=== PATIENT | female | born 1945 ===

== ENCOUNTER 2018-09-27 18:02 | Observation (INO) | payer BC, MEDICARE ==
[2018-09-27] MEDS ORDERED: Sodium Chloride 0.9% 10 ML Syringe FLUSH PRN ×2 (18:20→22:34)
[2018-09-27] MEDS ORDERED: Sodium Chloride 0.9% 2.5 ML Syringe FLUSH PRN ×2 (18:20→22:34)
--- NOTE | 2018-09-27 18:26 | EDM.PDOC ---
ED HPI GENERAL MEDICAL PROBLEM - General Chief Complaint: Cardiovascular Problem Stated Complaint: SHORTNESS OF BREATH, SWELLING IN LEGS Time Seen by Provider: 09/27/18 18:18 - History of Present Illness INITIAL COMMENTS - FREE TEXT/NARRATIVE: HISTORY AND PHYSICAL: History of present illness: Patient 73-year-old white female no significant past medical history presents with a concern of shortness of breath and peripheral edema she states worse over last 3-4 weeks she was seen in the clinic and not given diagnosis and was told that her lungs were clear. She denies chest pain nausea vomiting denies history of congestive heart failure renal failure heart disease and states her blood pressures borderline for which she has not been medicated Review of systems: As per history of present illness and below otherwise all systems reviewed and negative. Past medical history: As per history of present illness and as reviewed below otherwise noncontributory. Surgical history: As per history of present illness and as reviewed below otherwise noncontributory. Social history: No reported history of drug or alcohol abuse. Family history: As per history of present illness and as reviewed below otherwise noncontributory. Physical exam: HEENT: Atraumatic, normocephalic, pupils reactive, negative for conjunctival pallor or scleral icterus, mucous membranes moist, throat clear, neck supple, nontender, trachea midline. Lungs: Clear to auscultation, breath sounds equal bilaterally, chest nontender. Heart: S1S2, irregularly irregular, negative for clicks, rubs, or JVD. Abdomen: Soft, nondistended, nontender. Negative for masses or hepatosplenomegaly. Negative for costovertebral tenderness. Pelvis: Stable nontender. Genitourinary: Deferred. Rectal: Deferred. Extremities: Atraumatic, negative for cords or calf pain. Neurovascular unremarkable. Neuro: Awake, alert, oriented. Cranial nerves II through XII unremarkable. Cerebellum unremarkable. Motor and sensory unremarkable throughout. Exam nonfocal. Diagnostics: CBC CMP troponin and BNP PT/INR chest x-ray EKG Therapeutics: IV O2 monitor Artisan 20 mg IV Lovenox 83 mg subcutaneous Impression: #1 dyspnea #2 peripheral edema #3 new-onset atrial fibrillation with rapid ventricular response Definitive disposition and diagnosis as appropriate pending reevaluation and review of above. Under Ribs Pain Score (Numeric/FACES): 2 - Related Data Allergies Allergy/AdvReac Type Severity Reaction Status Date / Time shrimp Allergy Vomiting Verified 09/27/18 19:37 Home Meds: Home Meds . [No Known Home Meds] 09/27/18 [History] ED ROS GENERAL - Review of Systems Review Of Systems: ROS reveals no pertinent complaints other than HPI. ED EXAM, GENERAL - Physical Exam Exam: See Below (See dictation) Course - Vital Signs Last Recorded V/S: Last Vital Signs Temp 36.1 C 09/27/18 18:20 Pulse 111 H 09/27/18 18:20 Resp 20 09/27/18 18:20 BP 96/68 09/27/18 18:20 Pulse Ox 90 L 09/27/18 18:20 - Orders/Labs/Meds Orders: Active Orders 24 hr Category Date Time Status EKG Documentation Completion [RC] STAT Care 09/27/18 18:20 Active Pulse Oximetry [RC] ASDIRECTED Care 09/27/18 18:20 Active Sodium Chloride 0.9% [Normal Saline] 1,000 ml Med 09/27/18 18:30 Active IV ASDIRECTED Sodium Chloride 0.9% [Saline Flush] Med 09/27/18 18:20 Active 10 ml FLUSH ASDIRECTED PRN Sodium Chloride 0.9% [Saline Flush] Med 09/27/18 18:20 Active 2.5 ml FLUSH ASDIRECTED PRN Saline Lock Insert [OM.PC] Stat Oth 09/27/18 18:20 Ordered Medication Orders Sodium Chloride (Normal Saline) 1,000 mls @ 125 mls/hr IV ASDIRECTED ARIA Last Admin: 09/27/18 18:35 Dose: 125 mls/hr Sodium Chloride (Saline Flush) 10 ml FLUSH ASDIRECTED PRN PRN Reason: Keep Vein Open Sodium Chloride (Saline Flush) 2.5 ml FLUSH ASDIRECTED PRN PRN Reason: Keep Vein Open Labs: Laboratory Tests 09/27/18 09/27/18 09/27/18 Range/Units 18:30 18:30 18:30 WBC 11.52 H (4.0-11.0) K/uL RBC 5.34 (4.30-5.90) M/uL Hgb 14.5 (12.0-16.0) g/dL Hct 46.4 H (36.0-46.0) % MCV 86.9 (80.0-98.0) fL MCH 27.2 (27.0-32.0) pg MCHC 31.3 (31.0-37.0) g/dL RDW Std Deviation 48.6 (28.0-62.0) fl RDW Coeff of Peterson 15 (11.0-15.0) % Plt Count 331 (150-400) K/uL MPV 11.20 (7.40-12.00) fL Neut % (Auto) 53.7 (48.0-80.0) % Lymph % (Auto) 37.2 (16.0-40.0) % [place] % (Auto) 7.2 (0.0-15.0) % Eos % (Auto) 1.1 (0.0-7.0) % Baso % (Auto) 0.8 (0.0-1.5) % Neut # (Auto) 6.2 H (1.4-5.7) K/uL Lymph # (Auto) 4.3 H (0.6-2.4) K/uL [place] # (Auto) 0.8 (0.0-0.8) K/uL Eos # (Auto) 0.1 (0.0-0.7) K/uL Baso # (Auto) 0.1 (0.0-0.1) K/uL Nucleated RBC % 0.0 /100WBC Nucleated RBCs # 0 K/uL INR 1.17 Sodium 143 (136-145) mmol/L Potassium 3.9 (3.5-5.1) mmol/L Chloride 106 (98-107) mmol/L Carbon Dioxide 26.3 (21.0-32.0) mmol/L BUN 14 (7.0-18.0) mg/dL Creatinine 0.9 (0.6-1.0) mg/dL Est Cr Clr Drug Dosing 55.75 mL/min Estimated GFR (MDRD) > 60.0 ml/min Glucose 107 H (74-106) mg/dL Calcium 9.0 (8.5-10.1) mg/dL Total Bilirubin 1.7 H (0.2-1.0) mg/dL AST 49 H (15-37) IU/L ALT 44 (14-63) IU/L Alkaline Phosphatase 144 H (46-116) U/L Troponin I < 0.050 (0.000-0.056) ng/mL B-Natriuretic Peptide (<100) PG/ML Total Protein 7.2 (6.4-8.2) g/dL Albumin 3.4 (3.4-5.0) g/dL Globulin 3.8 (2.6-4.0) g/dL Albumin/Globulin Ratio 0.9 (0.9-1.6) 09/27/18 Range/Units 18:30 WBC (4.0-11.0) K/uL RBC (4.30-5.90) M/uL Hgb (12.0-16.0) g/dL Hct (36.0-46.0) % MCV (80.0-98.0) fL MCH (27.0-32.0) pg MCHC (31.0-37.0) g/dL RDW Std Deviation (28.0-62.0) fl RDW Coeff of Peterson (11.0-15.0) % Plt Count (150-400) K/uL MPV (7.40-12.00) fL Neut % (Auto) (48.0-80.0) % Lymph % (Auto) (16.0-40.0) % [place] % (Auto) (0.0-15.0) % Eos % (Auto) (0.0-7.0) % Baso % (Auto) (0.0-1.5) % Neut # (Auto) (1.4-5.7) K/uL Lymph # (Auto) (0.6-2.4) K/uL [place] # (Auto) (0.0-0.8) K/uL Eos # (Auto) (0.0-0.7) K/uL Baso # (Auto) (0.0-0.1) K/uL Nucleated RBC % /100WBC Nucleated RBCs # K/uL INR Sodium (136-145) mmol/L Potassium (3.5-5.1) mmol/L Chloride (98-107) mmol/L Carbon Dioxide (21.0-32.0) mmol/L BUN (7.0-18.0) mg/dL Creatinine (0.6-1.0) mg/dL Est Cr Clr Drug Dosing mL/min Estimated GFR (MDRD) ml/min Glucose (74-106) mg/dL Calcium (8.5-10.1) mg/dL Total Bilirubin (0.2-1.0) mg/dL AST (15-37) IU/L ALT (14-63) IU/L Alkaline Phosphatase (46-116) U/L Troponin I (0.000-0.056) ng/mL B-Natriuretic Peptide 701 H (<100) PG/ML Total Protein (6.4-8.2) g/dL Albumin (3.4-5.0) g/dL Globulin (2.6-4.0) g/dL Albumin/Globulin Ratio (0.9-1.6) Meds: Medications Generic Name Dose Route Start Last Admin Trade Name Freq PRN Reason Stop Dose Admin Sodium Chloride 1,000 mls @ 125 mls/hr 09/27/18 18:30 09/27/18 18:35 Normal Saline IV 125 mls/hr ASDIRECTED ARIA Administration Sodium Chloride 10 ml 09/27/18 18:20 Saline Flush FLUSH ASDIRECTED PRN Keep Vein Open Sodium Chloride 2.5 ml 09/27/18 18:20 Saline Flush FLUSH ASDIRECTED PRN Keep Vein Open Discontinued Medications Generic Name Dose Route Start Last Admin Trade Name Freq PRN Reason Stop Dose Admin Diltiazem HCl 20 mg 09/27/18 18:28 09/27/18 19:34 Diltiazem IVPUSH 09/27/18 18:29 20 mg ONETIME ONE Administration Enoxaparin Sodium 83 mg 09/27/18 18:29 09/27/18 18:35 Lovenox SUBCUT 09/27/18 18:30 83 mg ONETIME ONE Administration Departure - Departure Time of Disposition: 19:41 Disposition: Refer to Observation Condition: Good Clinical Impression: Atrial fibrillation - Discharge Information Referrals: Blair Shetty MD [Primary Care Provider] - Forms: ED Department Discharge - My Orders Last 24 Hours: My Active Orders 09/27/18 18:20 EKG Documentation Completion [RC] STAT Pulse Oximetry [RC] ASDIRECTED Sodium Chloride 0.9% [Saline Flush] 10 ml FLUSH ASDIRECTED PRN Sodium Chloride 0.9% [Saline Flush] 2.5 ml FLUSH ASDIRECTED PRN Saline Lock Insert [OM.PC] Stat 09/27/18 18:30 Sodium Chloride 0.9% [Normal Saline] 1,000 ml IV ASDIRECTED - Assessment/Plan Last 24 Hours: My Active Orders 09/27/18 18:20 EKG Documentation Completion [RC] STAT Pulse Oximetry [RC] ASDIRECTED Sodium Chloride 0.9% [Saline Flush] 10 ml FLUSH ASDIRECTED PRN Sodium Chloride 0.9% [Saline Flush] 2.5 ml FLUSH ASDIRECTED PRN Saline Lock Insert [OM.PC] Stat 09/27/18 18:30 Sodium Chloride 0.9% [Normal Saline] 1,000 ml IV ASDIRECTED
[2018-09-27] MEDS ORDERED: Diltiazem 25 MG/5 ML SDV IVPUSH ONE (18:28)
[2018-09-27] MEDS ORDERED: Enoxaparin 100 MG/1 ML Syringe SUBCUT ONE (18:29)
[2018-09-27] MEDS: Sodium Chloride 0.9% 1,000 ML IV SCH ×2 (18:35→22:47)
[2018-09-27 19:03] LABS: CHLORIDE,CL 106 mmol/L (98-107); SODIUM,NA 143 mmol/L (136-145)
--- NOTE | 2018-09-27 19:33 | CR ---
INDICATION: Shortness of breath, chest pain TECHNIQUE: Chest radiograph 1 view COMPARISON: None FINDINGS: Moderate to severe degradation of image quality noted due to body habitus. Mediastinum: The mediastinum is normal in appearance. Mild enlargement of the cardiac silhouette is present but may be accentuated by the portable technique. Lung: Both lungs are unremarkable in appearance. No sign of pleural effusion seen. No pneumothorax is identified. IMPRESSION: 1. Mild enlargement of the cardiac silhouette is present but may be accentuated by the portable technique. Dictated by Gideon Boudreaux MD @ 09/27/2018 7:31:46 PM Dictated by: Gideon Boudreaux MD @ 09/27/2018 19:31:51 (Electronically Signed)
[2018-09-27] MEDS ORDERED: oxyCODONE 5 MG Tab PO PRN (22:23)
[2018-09-27] MEDS ORDERED: Acetaminophen 325 MG Tab PO PRN (22:24)
[2018-09-28] MEDS: Diltiazem 25 MG/5 ML SDV IVPUSH PRN ×2 (00:10→08:03)
[2018-09-28] MEDS ORDERED: Enoxaparin 100 MG/1 ML Syringe SUBCUT SCH (09:00)
[2018-09-28] MEDS ORDERED: Furosemide 40 MG/4 ML VIAL IVPUSH ONE ×2 (09:41→17:38)
--- NOTE | 2018-09-28 09:50 | PCM.HP.2 ---
<Tylor Montez - Last Filed: 09/28/18 11:00> H&P History of Present Illness - General Date of Service: 09/28/18 Admit Problem/Dx: Admission Diagnosis/Problem Admission Diagnosis/Problem Atrial fibrillation - History of Present Illness Initial Comments - Free Text/Narative: 73 y/o female with no significant past medical history who presented to the ER complaining of worsening shortness of breath and leg swelling. She states that the leg swelling has been getting worse over the past 2 weeks and that her shortness of breath has been worsening in the past 1 week. She denies tobacco use. No history of lung disease. She is not taking any prescription medications. Occasional alcohol use. She does endorse family history of heart disease. She does share with me that she has been more stressed than usual the past 1 month since she is in the process of moving to [place]. Denies any chest pains. Some palpitations. No nausea, vomiting. No abdominal pain, dysuria, diarrhea, blood in stool. In the ER, chest xray showed some pulmonary congestion and cardiomegaly. BNP 700. EKG showed atrial fibrillation. Serial trops x3 were negative. Under Ribs Pain Score (Numeric/FACES): 2 - Related Data Allergies/Adverse Reactions: Allergies Allergy/AdvReac Type Severity Reaction Status Date / Time shrimp Allergy Vomiting Verified 09/27/18 21:38 Home Medications: Home Meds . [No Known Home Meds] 09/27/18 [History] Past Medical History - Past Health History Medical/Surgical History: Denies Medical/Surgical History Social & Family History - Tobacco Use Smoking Status *Q: Never Smoker - Caffeine Use Caffeine Use: Reports: Coffee, Soda, Tea - Recreational Drug Use Recreational Drug Use: No H&P Review of Systems - Review of Systems: Review Of Systems: ROS reveals no pertinent complaints other than HPI. Exam - Exam Exam: See Below - Vital Signs Vital Signs: Last Vital Signs Temp 36.4 C 09/28/18 08:09 Pulse 128 H 09/28/18 08:09 Resp 17 09/28/18 08:09 BP 155/89 H 09/28/18 08:09 Pulse Ox 94 L 09/28/18 08:09 Weight: 84.232 kg - Exam General: Alert, Oriented, Cooperative HEENT: Conjunctiva Clear, Mucosa Moist & [place] Lungs: Normal Respiratory Effort, Crackles. No: Wheezing Cardiovascular: Irregular Rhythm, Tachycardia GI/Abdominal Exam: Normal Bowel Sounds, Soft, Non-Tender Extremities: Other (2+ pitting edema bilaterally up to knees) Neuro Extensive - Mental Status: Alert, Oriented x3 - Patient Data Lab Results Last 24 hrs: Laboratory Results - last 24 hr 09/27/18 09/27/18 09/27/18 Range/Units 18:30 18:30 18:30 WBC 11.52 H (4.0-11.0) K/uL RBC 5.34 (4.30-5.90) M/uL Hgb 14.5 (12.0-16.0) g/dL Hct 46.4 H (36.0-46.0) % MCV 86.9 (80.0-98.0) fL MCH 27.2 (27.0-32.0) pg MCHC 31.3 (31.0-37.0) g/dL RDW Std Deviation 48.6 (28.0-62.0) fl RDW Coeff of Peterson 15 (11.0-15.0) % Plt Count 331 (150-400) K/uL MPV 11.20 (7.40-12.00) fL Neut % (Auto) 53.7 (48.0-80.0) % Lymph % (Auto) 37.2 (16.0-40.0) % [place] % (Auto) 7.2 (0.0-15.0) % Eos % (Auto) 1.1 (0.0-7.0) % Baso % (Auto) 0.8 (0.0-1.5) % Neut # (Auto) 6.2 H (1.4-5.7) K/uL Lymph # (Auto) 4.3 H (0.6-2.4) K/uL [place] # (Auto) 0.8 (0.0-0.8) K/uL Eos # (Auto) 0.1 (0.0-0.7) K/uL Baso # (Auto) 0.1 (0.0-0.1) K/uL Nucleated RBC % 0.0 /100WBC Nucleated RBCs # 0 K/uL INR 1.17 Sodium 143 (136-145) mmol/L Potassium 3.9 (3.5-5.1) mmol/L Chloride 106 (98-107) mmol/L Carbon Dioxide 26.3 (21.0-32.0) mmol/L BUN 14 (7.0-18.0) mg/dL Creatinine 0.9 (0.6-1.0) mg/dL Est Cr Clr Drug Dosing 55.75 mL/min Estimated GFR (MDRD) > 60.0 ml/min Glucose 107 H (74-106) mg/dL Calcium 9.0 (8.5-10.1) mg/dL Total Bilirubin 1.7 H (0.2-1.0) mg/dL AST 49 H (15-37) IU/L ALT 44 (14-63) IU/L Alkaline Phosphatase 144 H (46-116) U/L Troponin I < 0.050 (0.000-0.056) ng/mL B-Natriuretic Peptide (<100) PG/ML Total Protein 7.2 (6.4-8.2) g/dL Albumin 3.4 (3.4-5.0) g/dL Globulin 3.8 (2.6-4.0) g/dL Albumin/Globulin Ratio 0.9 (0.9-1.6) 09/27/18 09/28/18 09/28/18 Range/Units 18:30 00:29 06:30 WBC (4.0-11.0) K/uL RBC (4.30-5.90) M/uL Hgb (12.0-16.0) g/dL Hct (36.0-46.0) % MCV (80.0-98.0) fL MCH (27.0-32.0) pg MCHC (31.0-37.0) g/dL RDW Std Deviation (28.0-62.0) fl RDW Coeff of Peterson (11.0-15.0) % Plt Count (150-400) K/uL MPV (7.40-12.00) fL Neut % (Auto) (48.0-80.0) % Lymph % (Auto) (16.0-40.0) % [place] % (Auto) (0.0-15.0) % Eos % (Auto) (0.0-7.0) % Baso % (Auto) (0.0-1.5) % Neut # (Auto) (1.4-5.7) K/uL Lymph # (Auto) (0.6-2.4) K/uL [place] # (Auto) (0.0-0.8) K/uL Eos # (Auto) (0.0-0.7) K/uL Baso # (Auto) (0.0-0.1) K/uL Nucleated RBC % /100WBC Nucleated RBCs # K/uL INR Sodium (136-145) mmol/L Potassium (3.5-5.1) mmol/L Chloride (98-107) mmol/L Carbon Dioxide (21.0-32.0) mmol/L BUN (7.0-18.0) mg/dL Creatinine (0.6-1.0) mg/dL Est Cr Clr Drug Dosing mL/min Estimated GFR (MDRD) ml/min Glucose (74-106) mg/dL Calcium (8.5-10.1) mg/dL Total Bilirubin (0.2-1.0) mg/dL AST (15-37) IU/L ALT (14-63) IU/L Alkaline Phosphatase (46-116) U/L Troponin I < 0.050 < 0.050 (0.000-0.056) ng/mL B-Natriuretic Peptide 701 H (<100) PG/ML Total Protein (6.4-8.2) g/dL Albumin (3.4-5.0) g/dL Globulin (2.6-4.0) g/dL Albumin/Globulin Ratio (0.9-1.6) Result Diagrams: 09/28/18 06:30 09/28/18 06:30 Problem List Initiated/Reviewed/Updated: Yes Orders Last 24hrs: Active Orders 24 hr Category Date Time Status Patient Status [ADT] Stat ADT 09/27/18 19:41 Active Daily Weight [Height and Weight] [RC] DAILY Care 09/28/18 09:37 Active EKG 12 Lead [EKG Documentation Completion] [RC] AM Care 09/28/18 06:00 Active EKG Documentation Completion [RC] STAT Care 09/27/18 18:20 Active Intake and Output Strict [RC] ASDIRECTED Care 09/28/18 09:37 Active Pulse Oximetry [RC] ASDIRECTED Care 09/27/18 18:20 Active Telemetry Monitoring [Cardiac Monitoring] [RC] . Care 09/27/18 22:39 Active DIRECTED Fluid Restriction [DIET] Diet 09/28/18 Lunch Active Heart Healthy Diet [DIET] Diet 09/28/18 Breakfast Active Low Sodium [Sodium Restricted Diet] [DIET] Diet 09/28/18 Lunch Active Echo 2D wo Cont [US] Routine Exams 09/27/18 22:33 Ordered BMP [BASIC METABOLIC PANEL,BMP] [CHEM] AM Lab 09/29/18 05:11 Ordered CBC WITH AUTO DIFF [HEME] AM Lab 09/29/18 05:11 Ordered CBC WITH AUTO DIFF [HEME] Routine Lab 09/28/18 06:30 Received COMPREHENSIVE METABOLIC PN,CMP [CHEM] Routine Lab 09/28/18 06:30 Received GLYCOSYLATED HEMOGLOBIN,HGBA1C [CHEM] Routine Lab 09/28/18 06:30 Received LIPID PANEL [CHEM] AM Lab 09/29/18 05:11 Ordered TSH [CHEM] Routine Lab 09/28/18 06:30 Received Acetaminophen [Tylenol] Med 09/27/18 22:24 Active 650 mg PO Q6H PRN Apixaban [Eliquis] Med 09/28/18 09:45 Active 5 mg PO Q12H Diltiazem Med 09/27/18 22:25 Active 20 mg IVPUSH Q6H PRN Sodium Chloride 0.9% [Normal Saline] 1,000 ml Med 09/27/18 18:30 Active IV ASDIRECTED Sodium Chloride 0.9% [Saline Flush] Med 09/27/18 18:20 Active 10 ml FLUSH ASDIRECTED PRN Sodium Chloride 0.9% [Saline Flush] Med 09/27/18 22:34 Active 10 ml FLUSH ASDIRECTED PRN Sodium Chloride 0.9% [Saline Flush] Med 09/27/18 18:20 Active 2.5 ml FLUSH ASDIRECTED PRN Sodium Chloride 0.9% [Saline Flush] Med 09/27/18 22:34 Active 2.5 ml FLUSH ASDIRECTED PRN oxyCODONE Med 09/27/18 22:23 Active 5 mg PO Q4H PRN Convert IV to Saline Lock [OM.PC] Routine Oth 09/27/18 22:34 Ordered Saline Lock Insert [OM.PC] Stat Oth 09/27/18 18:20 Ordered Medication Orders Acetaminophen (Tylenol) 650 mg PO Q6H PRN PRN Reason: Pain Apixaban (Eliquis) 5 mg PO Q12H ARIA Diltiazem HCl (Diltiazem) 20 mg IVPUSH Q6H PRN PRN Reason: Tachycardia Last Admin: 09/28/18 08:03 Dose: 20 mg Admin: 09/28/18 00:10 Dose: 20 mg Sodium Chloride (Normal Saline) 1,000 mls @ 125 mls/hr IV ASDIRECTED ARIA Last Admin: 09/27/18 22:47 Dose: 125 mls/hr Infusion: 09/27/18 22:47 Dose: 125 mls/hr Admin: 09/27/18 18:35 Dose: 125 mls/hr Oxycodone HCl (Oxycodone) 5 mg PO Q4H PRN PRN Reason: Pain (moderate 4-6) Sodium Chloride (Saline Flush) 10 ml FLUSH ASDIRECTED PRN PRN Reason: Keep Vein Open Sodium Chloride (Saline Flush) 2.5 ml FLUSH ASDIRECTED PRN PRN Reason: Keep Vein Open Sodium Chloride (Saline Flush) 10 ml FLUSH ASDIRECTED PRN PRN Reason: Keep Vein Open Sodium Chloride (Saline Flush) 2.5 ml FLUSH ASDIRECTED PRN PRN Reason: Keep Vein Open Assessment/Plan Comment:: A: 1. Acute congestive Heart Failure 2. Atrial Fibrillation 3. Hyperbilirubinemia P: 1. Will treat for acute CHF exacerbation. Fluid restrict to 1800 mls/day. Daily weights. Strict I/Os, low sodium diet. Will give Lasix 40 mg IV once and see how she does. Pending Echo tomorrow. Started Eliquis BID. In regards to her Afib , currently rate controlled. Will switch to PO diltiazem. Will continue to monitor bilirubin. If still increasing, will order RUQ U/S. Dispo: 1-2 days <Matt Mahajan - Last Filed: 09/28/18 12:11> H&P History of Present Illness - General Admit Problem/Dx: Admission Diagnosis/Problem Admission Diagnosis/Problem Atrial fibrillation I have examined the patient independently of medical laboratory specialist, Dr. Konstantin MD. I have discussed the case with him. I have reviewed and agree with the examination and plan as outlined by him. Please see orders. Exam - Vital Signs Vital Signs: Last Vital Signs Temp 36.4 C 09/28/18 08:09 Pulse 128 H 09/28/18 08:09 Resp 17 09/28/18 08:09 BP 155/89 H 09/28/18 08:09 Pulse Ox 94 L 09/28/18 08:09 - Patient Data Lab Results Last 24 hrs: Laboratory Results - last 24 hr 09/27/18 09/27/18 09/27/18 Range/Units 18:30 18:30 18:30 WBC 11.52 H (4.0-11.0) K/uL RBC 5.34 (4.30-5.90) M/uL Hgb 14.5 (12.0-16.0) g/dL Hct 46.4 H (36.0-46.0) % MCV 86.9 (80.0-98.0) fL MCH 27.2 (27.0-32.0) pg MCHC 31.3 (31.0-37.0) g/dL RDW Std Deviation 48.6 (28.0-62.0) fl RDW Coeff of Peterson 15 (11.0-15.0) % Plt Count 331 (150-400) K/uL MPV 11.20 (7.40-12.00) fL Neut % (Auto) 53.7 (48.0-80.0) % Lymph % (Auto) 37.2 (16.0-40.0) % [place] % (Auto) 7.2 (0.0-15.0) % Eos % (Auto) 1.1 (0.0-7.0) % Baso % (Auto) 0.8 (0.0-1.5) % Neut # (Auto) 6.2 H (1.4-5.7) K/uL Lymph # (Auto) 4.3 H (0.6-2.4) K/uL [place] # (Auto) 0.8 (0.0-0.8) K/uL Eos # (Auto) 0.1 (0.0-0.7) K/uL Baso # (Auto) 0.1 (0.0-0.1) K/uL Nucleated RBC % 0.0 /100WBC Nucleated RBCs # 0 K/uL INR 1.17 Sodium 143 (136-145) mmol/L Potassium 3.9 (3.5-5.1) mmol/L Chloride 106 (98-107) mmol/L Carbon Dioxide 26.3 (21.0-32.0) mmol/L BUN 14 (7.0-18.0) mg/dL Creatinine 0.9 (0.6-1.0) mg/dL Est Cr Clr Drug Dosing 55.75 mL/min Estimated GFR (MDRD) > 60.0 ml/min Glucose 107 H (74-106) mg/dL Hemoglobin A1c (4.5-6.2) % Calcium 9.0 (8.5-10.1) mg/dL Total Bilirubin 1.7 H (0.2-1.0) mg/dL AST 49 H (15-37) IU/L ALT 44 (14-63) IU/L Alkaline Phosphatase 144 H (46-116) U/L Troponin I < 0.050 (0.000-0.056) ng/mL B-Natriuretic Peptide (<100) PG/ML Total Protein 7.2 (6.4-8.2) g/dL Albumin 3.4 (3.4-5.0) g/dL Globulin 3.8 (2.6-4.0) g/dL Albumin/Globulin Ratio 0.9 (0.9-1.6) TSH 3rd Generation (0.36-3.74) uIU/mL 09/27/18 09/28/18 09/28/18 Range/Units 18:30 00:29 06:30 WBC (4.0-11.0) K/uL RBC (4.30-5.90) M/uL Hgb (12.0-16.0) g/dL Hct (36.0-46.0) % MCV (80.0-98.0) fL MCH (27.0-32.0) pg MCHC (31.0-37.0) g/dL RDW Std Deviation (28.0-62.0) fl RDW Coeff of Peterson (11.0-15.0) % Plt Count (150-400) K/uL MPV (7.40-12.00) fL Neut % (Auto) (48.0-80.0) % Lymph % (Auto) (16.0-40.0) % [place] % (Auto) (0.0-15.0) % Eos % (Auto) (0.0-7.0) % Baso % (Auto) (0.0-1.5) % Neut # (Auto) (1.4-5.7) K/uL Lymph # (Auto) (0.6-2.4) K/uL [place] # (Auto) (0.0-0.8) K/uL Eos # (Auto) (0.0-0.7) K/uL Baso # (Auto) (0.0-0.1) K/uL Nucleated RBC % /100WBC Nucleated RBCs # K/uL INR Sodium (136-145) mmol/L Potassium (3.5-5.1) mmol/L Chloride (98-107) mmol/L Carbon Dioxide (21.0-32.0) mmol/L BUN (7.0-18.0) mg/dL Creatinine (0.6-1.0) mg/dL Est Cr Clr Drug Dosing mL/min Estimated GFR (MDRD) ml/min Glucose (74-106) mg/dL Hemoglobin A1c (4.5-6.2) % Calcium (8.5-10.1) mg/dL Total Bilirubin (0.2-1.0) mg/dL AST (15-37) IU/L ALT (14-63) IU/L Alkaline Phosphatase (46-116) U/L Troponin I < 0.050 < 0.050 (0.000-0.056) ng/mL B-Natriuretic Peptide 701 H (<100) PG/ML Total Protein (6.4-8.2) g/dL Albumin (3.4-5.0) g/dL Globulin (2.6-4.0) g/dL Albumin/Globulin Ratio (0.9-1.6) TSH 3rd Generation (0.36-3.74) uIU/mL 09/28/18 09/28/18 09/28/18 Range/Units 06:30 06:30 06:30 WBC 10.58 (4.0-11.0) K/uL RBC 5.01 (4.30-5.90) M/uL Hgb 13.6 (12.0-16.0) g/dL Hct 43.4 (36.0-46.0) % MCV 86.6 (80.0-98.0) fL MCH 27.1 (27.0-32.0) pg MCHC 31.3 (31.0-37.0) g/dL RDW Std Deviation 47.1 (28.0-62.0) fl RDW Coeff of Peterson 15 (11.0-15.0) % Plt Count 315 (150-400) K/uL MPV 10.90 (7.40-12.00) fL Neut % (Auto) 49.1 (48.0-80.0) % Lymph % (Auto) 41.8 H (16.0-40.0) % [place] % (Auto) 5.9 (0.0-15.0) % Eos % (Auto) 2.3 (0.0-7.0) % Baso % (Auto) 0.9 (0.0-1.5) % Neut # (Auto) 5.2 (1.4-5.7) K/uL Lymph # (Auto) 4.4 H (0.6-2.4) K/uL [place] # (Auto) 0.6 (0.0-0.8) K/uL Eos # (Auto) 0.2 (0.0-0.7) K/uL Baso # (Auto) 0.1 (0.0-0.1) K/uL Nucleated RBC % 0.0 /100WBC Nucleated RBCs # 0 K/uL INR Sodium 142 (136-145) mmol/L Potassium 4.0 (3.5-5.1) mmol/L Chloride 106 (98-107) mmol/L Carbon Dioxide 24.1 (21.0-32.0) mmol/L BUN 12 (7.0-18.0) mg/dL Creatinine 0.9 (0.6-1.0) mg/dL Est Cr Clr Drug Dosing 54.71 mL/min Estimated GFR (MDRD) > 60.0 ml/min Glucose 97 (74-106) mg/dL Hemoglobin A1c (4.5-6.2) % Calcium 8.7 (8.5-10.1) mg/dL Total Bilirubin 2.0 H (0.2-1.0) mg/dL AST 49 H (15-37) IU/L ALT 43 (14-63) IU/L Alkaline Phosphatase 130 H (46-116) U/L Troponin I (0.000-0.056) ng/mL B-Natriuretic Peptide (<100) PG/ML Total Protein 6.6 (6.4-8.2) g/dL Albumin 3.1 L (3.4-5.0) g/dL Globulin 3.5 (2.6-4.0) g/dL Albumin/Globulin Ratio 0.9 (0.9-1.6) TSH 3rd Generation 1.32 (0.36-3.74) uIU/mL 09/28/18 Range/Units 06:30 WBC (4.0-11.0) K/uL RBC (4.30-5.90) M/uL Hgb (12.0-16.0) g/dL Hct (36.0-46.0) % MCV (80.0-98.0) fL MCH (27.0-32.0) pg MCHC (31.0-37.0) g/dL RDW Std Deviation (28.0-62.0) fl RDW Coeff of Peterson (11.0-15.0) % Plt Count (150-400) K/uL MPV (7.40-12.00) fL Neut % (Auto) (48.0-80.0) % Lymph % (Auto) (16.0-40.0) % [place] % (Auto) (0.0-15.0) % Eos % (Auto) (0.0-7.0) % Baso % (Auto) (0.0-1.5) % Neut # (Auto) (1.4-5.7) K/uL Lymph # (Auto) (0.6-2.4) K/uL [place] # (Auto) (0.0-0.8) K/uL Eos # (Auto) (0.0-0.7) K/uL Baso # (Auto) (0.0-0.1) K/uL Nucleated RBC % /100WBC Nucleated RBCs # K/uL INR Sodium (136-145) mmol/L Potassium (3.5-5.1) mmol/L Chloride (98-107) mmol/L Carbon Dioxide (21.0-32.0) mmol/L BUN (7.0-18.0) mg/dL Creatinine (0.6-1.0) mg/dL Est Cr Clr Drug Dosing mL/min Estimated GFR (MDRD) ml/min Glucose (74-106) mg/dL Hemoglobin A1c 5.9 (4.5-6.2) % Calcium (8.5-10.1) mg/dL Total Bilirubin (0.2-1.0) mg/dL AST (15-37) IU/L ALT (14-63) IU/L Alkaline Phosphatase (46-116) U/L Troponin I (0.000-0.056) ng/mL B-Natriuretic Peptide (<100) PG/ML Total Protein (6.4-8.2) g/dL Albumin (3.4-5.0) g/dL Globulin (2.6-4.0) g/dL Albumin/Globulin Ratio (0.9-1.6) TSH 3rd Generation (0.36-3.74) uIU/mL Result Diagrams: 09/28/18 06:30 09/28/18 06:30 Orders Last 24hrs: Active Orders 24 hr Category Date Time Status Patient Status [ADT] Stat ADT 09/27/18 19:41 Active Daily Weight [Height and Weight] [RC] DAILY Care 09/28/18 09:37 Active EKG 12 Lead [EKG Documentation Completion] [RC] AM Care 09/28/18 06:00 Active EKG Documentation Completion [RC] STAT Care 09/27/18 18:20 Active Intake and Output Strict [RC] ASDIRECTED Care 09/28/18 09:37 Active Pulse Oximetry [RC] ASDIRECTED Care 09/27/18 18:20 Active Telemetry Monitoring [Cardiac Monitoring] [RC] . Care 09/27/18 22:39 Active DIRECTED Fluid Restriction [DIET] Diet 09/28/18 Lunch Active Low Sodium [Sodium Restricted Diet] [DIET] Diet 09/28/18 Lunch Active Echo 2D wo Cont [US] Routine Exams 09/27/18 22:33 Ordered BMP [BASIC METABOLIC PANEL,BMP] [CHEM] AM Lab 09/29/18 05:11 Ordered CBC WITH AUTO DIFF [HEME] AM Lab 09/29/18 05:11 Ordered LIPID PANEL [CHEM] AM Lab 09/29/18 05:11 Ordered Acetaminophen [Tylenol] Med 09/27/18 22:24 Active 650 mg PO Q6H PRN Apixaban [Eliquis] Med 09/28/18 09:45 Active 5 mg PO Q12H Diltiazem [Cardizem CD] Med 09/28/18 11:15 Active 120 mg PO DAILY Sodium Chloride 0.9% [Normal Saline] 1,000 ml Med 09/27/18 18:30 Active IV ASDIRECTED Sodium Chloride 0.9% [Saline Flush] Med 09/27/18 18:20 Active 10 ml FLUSH ASDIRECTED PRN Sodium Chloride 0.9% [Saline Flush] Med 09/27/18 22:34 Active 10 ml FLUSH ASDIRECTED PRN Sodium Chloride 0.9% [Saline Flush] Med 09/27/18 18:20 Active 2.5 ml FLUSH ASDIRECTED PRN Sodium Chloride 0.9% [Saline Flush] Med 09/27/18 22:34 Active 2.5 ml FLUSH ASDIRECTED PRN oxyCODONE Med 09/27/18 22:23 Active 5 mg PO Q4H PRN Convert IV to Saline Lock [OM.PC] Routine Oth 09/27/18 22:34 Ordered Saline Lock Insert [OM.PC] Stat Oth 09/27/18 18:20 Ordered Medication Orders Acetaminophen (Tylenol) 650 mg PO Q6H PRN PRN Reason: Pain Apixaban (Eliquis) 5 mg PO Q12H [facility] Last Admin: 09/28/18 10:24 Dose: 5 mg Diltiazem HCl (Cardizem Cd) 120 mg PO DAILY [facility] Sodium Chloride (Normal Saline) 1,000 mls @ 125 mls/hr IV ASDIRECTED ARIA Last Admin: 09/27/18 22:47 Dose: 125 mls/hr Infusion: 09/27/18 22:47 Dose: 125 mls/hr Admin: 09/27/18 18:35 Dose: 125 mls/hr Oxycodone HCl (Oxycodone) 5 mg PO Q4H PRN PRN Reason: Pain (moderate 4-6) Sodium Chloride (Saline Flush) 10 ml FLUSH ASDIRECTED PRN PRN Reason: Keep Vein Open Sodium Chloride (Saline Flush) 2.5 ml FLUSH ASDIRECTED PRN PRN Reason: Keep Vein Open Sodium Chloride (Saline Flush) 10 ml FLUSH ASDIRECTED PRN PRN Reason: Keep Vein Open Sodium Chloride (Saline Flush) 2.5 ml FLUSH ASDIRECTED PRN PRN Reason: Keep Vein Open
[2018-09-28 09:51] LABS: CHLORIDE,CL 106 mmol/L (98-107); SODIUM,NA 142 mmol/L (136-145)
[2018-09-28 10:11] LABS: HEMOGLOBIN A1C 5.9 % (4.5-6.2)
[2018-09-28] MEDS: Apixaban 5 MG Tab PO SCH ×2 (10:24→21:40)
[2018-09-28] MEDS ORDERED: Diltiazem 120 MG Cap.CD PO SCH (11:15)
[2018-09-29 06:11] LABS: CHLORIDE,CL 105 mmol/L (98-107); SODIUM,NA 141 mmol/L (136-145)
[2018-09-29] MEDS ORDERED: Diltiazem 180 MG Cap.CD PO SCH (09:00)
[2018-09-29] MEDS ORDERED: Magnesium Sulfate/Water 2 GM in Premix Bag 1 BAG IV ONE (09:13)
[2018-09-29] MEDS: Potassium Chloride 20 MEQ Tab.ER PO SCH ×2 (09:35→10:34)
[2018-09-29] MEDS: Apixaban 5 MG Tab PO SCH (09:35)
[2018-09-29] MEDS ORDERED: Metoprolol Tartrate 25 MG Tab PO SCH (09:45)
--- NOTE | 2018-09-29 11:26 | PCM.DCSUM1 ---
<Tylor Montez - Last Filed: 09/29/18 11:22> Discharge Summary - Hospital Course Free Text/Narrative:: 73 y/o female who presented to the ER complaining of worsening shortness of breath for the past 1 week. She was found to be in AFib w/RVR. Echo was ordered which results were pending at time of discharge. She was also fluid restricted to 1.8 L/day since she was in acute CHF exacerbation. She had good urine output. Patient was rate controlled with diltiazem 180 mg ER PO daily, Metoprolol tartrate 25 mg PO BID. Also started on Eliquis 5 mg PO BID. She was discharged home on sinus rhythm, rate controlled. She was prescribed Lasix 40 mg PO daily and KCl 20 mg PO daily. She was advised to follow-up with her PCP and Cardiology. - Discharge Data Discharge Date: 09/29/18 Discharge Disposition: Home, Self-Care 01 Condition: Good - Patient Instructions Diet: Heart Healthy Diet, Low Sodium Fluid Restriction: 2000 mL Activity: As Tolerated Notify Provider of: Fever, Increased Pain, Swelling and Redness, Nausea and/or Vomiting - Discharge Plan *PRESCRIPTION DRUG MONITORING PROGRAM REVIEWED*: Not Applicable *COPY OF PRESCRIPTION DRUG MONITORING REPORT IN PATIENT LM: Not Applicable Prescriptions/Med Rec: Apixaban [Eliquis] 5 mg PO Q12H 30 Days #60 tablet Diltiazem HCl [Diltiazem ER] 180 mg PO DAILY #30 capsule.er Furosemide [Lasix] 40 mg PO DAILY 30 Days #30 tab Metoprolol Tartrate [Lopressor] 25 mg PO Q12H 30 Days #60 tablet Potassium Chloride [Klor-Con M20] 20 meq PO DAILY #30 tab.er Home Medications: Home Meds Apixaban [Eliquis] 5 mg PO Q12H 30 Days #60 tablet 09/29/18 [Rx] Diltiazem HCl [Diltiazem ER] 180 mg PO DAILY #30 capsule.er 09/29/18 [Rx] Furosemide [Lasix] 40 mg PO DAILY 30 Days #30 tab 09/29/18 [Rx] Metoprolol Tartrate [Lopressor] 25 mg PO Q12H 30 Days #60 tablet 09/29/18 [Rx] Potassium Chloride [Klor-Con M20] 20 meq PO DAILY #30 tab.er 09/29/18 [Rx] Patient Handouts: Furosemide tablets, Potassium chloride tablets, extended- release tablets or capsules, Metoprolol tablets, Atrial Flutter, Diltiazem tablets, Apixaban oral tablets, Atrial Fibrillation, [id number] Referrals: Federico Rome MD [Physician] - 10/24/18 2:00 pm (Arrive 15 minutes early) Blair Shetty MD [Primary Care Provider] - 10/06/18 1:00 am (Arrive at 1245 with photo ID and insurence card. Must arrive early, or they will not be able to see you.) - Discharge Summary/Plan Comment DC Time >30 min.: No - Patient Data Vitals - Most Recent: Last Vital Signs Temp 36.1 C 09/29/18 07:47 Pulse 135 H 09/29/18 10:36 Resp 18 09/29/18 07:47 BP 131/78 09/29/18 10:36 Pulse Ox 94 L 09/29/18 07:47 Weight - Most Recent: 79.107 kg I&O - Last 24 hours: Intake & Output 09/28/18 09/29/18 09/29/18 22:59 06:59 14:59 Intake Total 850 600 Output Total 2800 3950 Balance -1950 -3350 Lab Results - Last 24 hrs: Laboratory Results - last 24 hr 09/28/18 09/29/18 09/29/18 Range/Units 06:30 05:29 05:29 WBC 6.95 (4.0-11.0) K/uL RBC 4.82 (4.30-5.90) M/uL Hgb 12.9 (12.0-16.0) g/dL Hct 40.9 (36.0-46.0) % MCV 84.9 (80.0-98.0) fL MCH 26.8 L (27.0-32.0) pg MCHC 31.5 (31.0-37.0) g/dL RDW Std Deviation 45.7 (28.0-62.0) fl RDW Coeff of Peterson 15 (11.0-15.0) % Plt Count 280 (150-400) K/uL MPV 10.50 (7.40-12.00) fL Neut % (Auto) 53.8 (48.0-80.0) % Lymph % (Auto) 33.5 (16.0-40.0) % [place] % (Auto) 8.5 (0.0-15.0) % Eos % (Auto) 3.5 (0.0-7.0) % Baso % (Auto) 0.7 (0.0-1.5) % Neut # (Auto) 3.7 (1.4-5.7) K/uL Lymph # (Auto) 2.3 (0.6-2.4) K/uL [place] # (Auto) 0.6 (0.0-0.8) K/uL Eos # (Auto) 0.2 (0.0-0.7) K/uL Baso # (Auto) 0.1 (0.0-0.1) K/uL Nucleated RBC % 0.0 /100WBC Nucleated RBCs # 0 K/uL Sodium 141 (136-145) mmol/L Potassium 3.2 L (3.5-5.1) mmol/L Chloride 105 (98-107) mmol/L Carbon Dioxide 28.4 (21.0-32.0) mmol/L BUN 11 (7.0-18.0) mg/dL Creatinine 0.7 (0.6-1.0) mg/dL Est Cr Clr Drug Dosing 70.44 mL/min Estimated GFR (MDRD) > 60.0 ml/min Glucose 101 (74-106) mg/dL Calcium 8.6 (8.5-10.1) mg/dL Magnesium 1.9 (1.8-2.4) mg/dL Triglycerides 58 (0-200) mg/dL Cholesterol 134 (50-200) mg/dL LDL Cholesterol, Calc 89 (60-180) mg/dL VLDL Cholesterol 11 (5-55) mg/dL HDL Cholesterol 33 L (40-60) mg/dL Cholesterol/HDL Ratio 4.1 (3.3-6.0) 09/29/18 Range/Units 05:29 WBC (4.0-11.0) K/uL RBC (4.30-5.90) M/uL Hgb (12.0-16.0) g/dL Hct (36.0-46.0) % MCV (80.0-98.0) fL MCH (27.0-32.0) pg MCHC (31.0-37.0) g/dL RDW Std Deviation (28.0-62.0) fl RDW Coeff of Peterson (11.0-15.0) % Plt Count (150-400) K/uL MPV (7.40-12.00) fL Neut % (Auto) (48.0-80.0) % Lymph % (Auto) (16.0-40.0) % [place] % (Auto) (0.0-15.0) % Eos % (Auto) (0.0-7.0) % Baso % (Auto) (0.0-1.5) % Neut # (Auto) (1.4-5.7) K/uL Lymph # (Auto) (0.6-2.4) K/uL [place] # (Auto) (0.0-0.8) K/uL Eos # (Auto) (0.0-0.7) K/uL Baso # (Auto) (0.0-0.1) K/uL Nucleated RBC % /100WBC Nucleated RBCs # K/uL Sodium (136-145) mmol/L Potassium (3.5-5.1) mmol/L Chloride (98-107) mmol/L Carbon Dioxide (21.0-32.0) mmol/L BUN (7.0-18.0) mg/dL Creatinine (0.6-1.0) mg/dL Est Cr Clr Drug Dosing mL/min Estimated GFR (MDRD) ml/min Glucose (74-106) mg/dL Calcium (8.5-10.1) mg/dL Magnesium 1.6 L (1.8-2.4) mg/dL Triglycerides (0-200) mg/dL Cholesterol (50-200) mg/dL LDL Cholesterol, Calc (60-180) mg/dL VLDL Cholesterol (5-55) mg/dL HDL Cholesterol (40-60) mg/dL Cholesterol/HDL Ratio (3.3-6.0) Med Orders - Current: Current Medications Acetaminophen (Tylenol) 650 mg PO Q6H PRN PRN Reason: Pain Apixaban (Eliquis) 5 mg PO Q12H [facility] Last Admin: 09/29/18 09:35 Dose: 5 mg Diltiazem HCl (Cardizem Cd) 180 mg PO DAILY [facility] Last Admin: 09/29/18 08:07 Dose: 180 mg Metoprolol Tartrate (Lopressor) 25 mg PO Q12H [facility] Last Admin: 09/29/18 10:36 Dose: 25 mg Oxycodone HCl (Oxycodone) 5 mg PO Q4H PRN PRN Reason: Pain (moderate 4-6) Potassium Chloride (Klor-Con M20) 40 meq PO Q3H [facility] Stop: 09/29/18 11:31 Last Admin: 09/29/18 10:34 Dose: 40 meq Sodium Chloride (Saline Flush) 10 ml FLUSH ASDIRECTED PRN PRN Reason: Keep Vein Open Sodium Chloride (Saline Flush) 2.5 ml FLUSH ASDIRECTED PRN PRN Reason: Keep Vein Open Sodium Chloride (Saline Flush) 10 ml FLUSH ASDIRECTED PRN PRN Reason: Keep Vein Open Sodium Chloride (Saline Flush) 2.5 ml FLUSH ASDIRECTED PRN PRN Reason: Keep Vein Open Discontinued Medications Diltiazem HCl (Diltiazem) 20 mg IVPUSH ONETIME ONE Stop: 09/27/18 18:29 Last Admin: 09/27/18 19:34 Dose: 20 mg Diltiazem HCl (Diltiazem) 20 mg IVPUSH Q6H PRN PRN Reason: Tachycardia Last Admin: 09/28/18 08:03 Dose: 20 mg Diltiazem HCl (Cardizem Cd) 120 mg PO DAILY [facility] Last Admin: 09/28/18 12:19 Dose: 120 mg Enoxaparin Sodium (Lovenox) 83 mg SUBCUT ONETIME ONE Stop: 09/27/18 18:30 Last Admin: 09/27/18 18:35 Dose: 83 mg Enoxaparin Sodium (Lovenox) 83 mg SUBCUT DAILY [facility] Last Admin: 09/28/18 09:52 Dose: Not Given Furosemide (Lasix) 40 mg IVPUSH NOW ONE Stop: 09/28/18 09:42 Last Admin: 09/28/18 10:24 Dose: 40 mg Furosemide (Lasix) 40 mg IVPUSH NOW ONE Stop: 09/28/18 17:39 Last Admin: 09/28/18 18:34 Dose: 40 mg Sodium Chloride (Normal Saline) 1,000 mls @ 125 mls/hr IV ASDIRECTED [facility] Last Admin: 09/27/18 22:47 Dose: 125 mls/hr Magnesium Sulfate 2 gm/ Premix 50 mls @ 25 mls/hr IV ONETIME ONE Stop: 09/29/18 11:12 Last Admin: 09/29/18 09:35 Dose: 25 mls/hr <Matt Mahajan - Last Filed: 09/29/18 13:46> Discharge Summary - Hospital Course HPI Initial Comments: I have seen and evaluated the patient independent of medical center director, Dr. Konstantin MD. I have reviewed and agree with the plan and care as outlined for this patient by him. I have discussed the case with him. Please see orders. - Patient Data Vitals - Most Recent: Last Vital Signs Temp 35.7 C 09/29/18 11:47 Pulse 77 09/29/18 11:47 Resp 22 H 09/29/18 11:47 BP 110/68 09/29/18 11:47 Pulse Ox 97 09/29/18 11:47 I&O - Last 24 hours: Intake & Output 09/28/18 09/29/18 09/29/18 22:59 06:59 14:59 Intake Total 850 600 480 Output Total 2800 3950 700 Balance -1950 -0430 -220 Lab Results - Last 24 hrs: Laboratory Results - last 24 hr 09/29/18 09/29/18 09/29/18 Range/Units 05:29 05:29 05:29 WBC 6.95 (4.0-11.0) K/uL RBC 4.82 (4.30-5.90) M/uL Hgb 12.9 (12.0-16.0) g/dL Hct 40.9 (36.0-46.0) % MCV 84.9 (80.0-98.0) fL MCH 26.8 L (27.0-32.0) pg MCHC 31.5 (31.0-37.0) g/dL RDW Std Deviation 45.7 (28.0-62.0) fl RDW Coeff of Peterson 15 (11.0-15.0) % Plt Count 280 (150-400) K/uL MPV 10.50 (7.40-12.00) fL Neut % (Auto) 53.8 (48.0-80.0) % Lymph % (Auto) 33.5 (16.0-40.0) % [place] % (Auto) 8.5 (0.0-15.0) % Eos % (Auto) 3.5 (0.0-7.0) % Baso % (Auto) 0.7 (0.0-1.5) % Neut # (Auto) 3.7 (1.4-5.7) K/uL Lymph # (Auto) 2.3 (0.6-2.4) K/uL [place] # (Auto) 0.6 (0.0-0.8) K/uL Eos # (Auto) 0.2 (0.0-0.7) K/uL Baso # (Auto) 0.1 (0.0-0.1) K/uL Nucleated RBC % 0.0 /100WBC Nucleated RBCs # 0 K/uL Sodium 141 (136-145) mmol/L Potassium 3.2 L (3.5-5.1) mmol/L Chloride 105 (98-107) mmol/L Carbon Dioxide 28.4 (21.0-32.0) mmol/L BUN 11 (7.0-18.0) mg/dL Creatinine 0.7 (0.6-1.0) mg/dL Est Cr Clr Drug Dosing 70.44 mL/min Estimated GFR (MDRD) > 60.0 ml/min Glucose 101 (74-106) mg/dL Calcium 8.6 (8.5-10.1) mg/dL Magnesium 1.6 L (1.8-2.4) mg/dL Triglycerides 58 (0-200) mg/dL Cholesterol 134 (50-200) mg/dL LDL Cholesterol, Calc 89 (60-180) mg/dL VLDL Cholesterol 11 (5-55) mg/dL HDL Cholesterol 33 L (40-60) mg/dL Cholesterol/HDL Ratio 4.1 (3.3-6.0) Med Orders - Current: Current Medications Acetaminophen (Tylenol) 650 mg PO Q6H PRN PRN Reason: Pain Apixaban (Eliquis) 5 mg PO Q12H [facility] Last Admin: 09/29/18 09:35 Dose: 5 mg Diltiazem HCl (Cardizem Cd) 180 mg PO DAILY [facility] Last Admin: 09/29/18 08:07 Dose: 180 mg Metoprolol Tartrate (Lopressor) 25 mg PO Q12H [facility] Last Admin: 09/29/18 10:36 Dose: 25 mg Oxycodone HCl (Oxycodone) 5 mg PO Q4H PRN PRN Reason: Pain (moderate 4-6) Sodium Chloride (Saline Flush) 10 ml FLUSH ASDIRECTED PRN PRN Reason: Keep Vein Open Sodium Chloride (Saline Flush) 2.5 ml FLUSH ASDIRECTED PRN PRN Reason: Keep Vein Open Sodium Chloride (Saline Flush) 10 ml FLUSH ASDIRECTED PRN PRN Reason: Keep Vein Open Sodium Chloride (Saline Flush) 2.5 ml FLUSH ASDIRECTED PRN PRN Reason: Keep Vein Open Discontinued Medications Diltiazem HCl (Diltiazem) 20 mg IVPUSH ONETIME ONE Stop: 09/27/18 18:29 Last Admin: 09/27/18 19:34 Dose: 20 mg Diltiazem HCl (Diltiazem) 20 mg IVPUSH Q6H PRN PRN Reason: Tachycardia Last Admin: 09/28/18 08:03 Dose: 20 mg Diltiazem HCl (Cardizem Cd) 120 mg PO DAILY [facility] Last Admin: 09/28/18 12:19 Dose: 120 mg Enoxaparin Sodium (Lovenox) 83 mg SUBCUT ONETIME ONE Stop: 09/27/18 18:30 Last Admin: 09/27/18 18:35 Dose: 83 mg Enoxaparin Sodium (Lovenox) 83 mg SUBCUT DAILY [facility] Last Admin: 09/28/18 09:52 Dose: Not Given Furosemide (Lasix) 40 mg IVPUSH NOW ONE Stop: 09/28/18 09:42 Last Admin: 09/28/18 10:24 Dose: 40 mg Furosemide (Lasix) 40 mg IVPUSH NOW ONE Stop: 09/28/18 17:39 Last Admin: 09/28/18 18:34 Dose: 40 mg Sodium Chloride (Normal Saline) 1,000 mls @ 125 mls/hr IV ASDIRECTED [facility] Last Admin: 09/27/18 22:47 Dose: 125 mls/hr Magnesium Sulfate 2 gm/ Premix 50 mls @ 25 mls/hr IV ONETIME ONE Stop: 09/29/18 11:12 Last Admin: 09/29/18 09:35 Dose: 25 mls/hr Potassium Chloride (Klor-Con M20) 40 meq PO Q3H [facility] Stop: 09/29/18 11:31 Last Admin: 09/29/18 10:34 Dose: 40 meq
--- NOTE | 2018-10-01 10:12 | ECHO ---
The echocardiogram report can be seen in this patient's EMR (Electronic Medical Record) in the Reports section. The echocardiogram report has also been scanned into PACS and can be seen there as well. SAMMY
== END 2018-09-29 13:15 | disposition home or self-care (01) ==
LOC: MW.ED 18:02 → MW.MS 19:41 → UNDOADMOB 19:57 → MW.MS 19:57
PROVIDERS: ADMIT Internal Medicine; ATTEND Internal Medicine
DX: I50.9 Heart failure, unspecified (principal); I48.91 Unspecified atrial fibrillation; E80.6 Other disorders of bilirubin metabolism; Z91.013 Allergy to seafood
CPT/HCPCS: 36415; 71045; 80048; 80053; 80061; 83036; 83735; 83880; 84443; 84484; 85025; 85610; 93005; 93306; 96361; 96365; 96366; 96372; 96375; 96376; 99285; A9270; G0378; J1650; J1940; J3475; J3490; J7040; 96374; 99283